=== PATIENT | female | born 1980 | race Caucasian/White ===

== ENCOUNTER 2016-02-21 16:54 | Outpatient (CLI) | payer OTHER, BC ==
[~2016-02-21 16:54] MED LIST: AMOXICILLIN500 M1 PO; IBUPROFEN400 MG PO; ULTRAM EQIVALEN50 MG PO; VICODIN EQUIVAL1 TAB PO; ZYRTEC ALLERGY10 MG PO
--- NOTE | 2016-02-21 18:04 | DIAGNOSTIC IMAGING REPORT ---
PROCEDURE: CT SINUS/FACIAL BONES W/O CONT CLINICAL INDICATION: CHRONIC SINUSITIS TECHNIQUE: Noncontrast axial images with coronal reformations. COMPARISON: None. FINDINGS: Mild to moderate bilateral maxillary, moderate ethmoid and mild sphenoid sinus mucosal thickening. Frontal sinuses are clear. There is occlusion of the ostiomeatal units bilaterally. Minor S-shaped curvature of the septum. Mastoids are clear. IMPRESSION: 1. Sinus disease with occlusion of the bilateral ostiomeatal units 2. Results discussed with JIHAN May All CT scans at this facility use dose modulation, iterative reconstruction, and/or weight-based dosing when appropriate to reduce radiation dose to as low as reasonably achievable.
== END 2016-02-21 23:00 ==
LOC: CT SRH 16:54
DX: J32.9 Chronic sinusitis, unspecified (principal)